=== PATIENT | female | born 1975 | race Caucasian/White ===

== ENCOUNTER 2017-04-04 23:05 | Emergency (ER) | payer BC, OTHER ==
--- NOTE | 2017-04-04 23:25 | EDM.PDOC ---
ED HPI GENERAL MEDICAL PROBLEM - General Chief Complaint: Genitourinary Problem Stated Complaint: UTI Time Seen by Provider: 04/04/17 23:17 Source of Information: Reports: Patient, Family History Limitations: Reports: No Limitations - History of Present Illness INITIAL COMMENTS - FREE TEXT/NARRATIVE: 41 y.o w. f came to the ed due to painful urination for 2 days. No other acute medical issues. Pt denies the possibility of . No other acute medical issues. BP 112/76 RR 14 Temp 36.6 pulse 76 pulse ox 98% on RA. Onset: Today Onset Date: 04/04/17 Onset Time: 07:00 Duration: Hour(s):, Intermittent Location: Reports: Pelvis Quality: Reports: Burning Severity: Mild Improves with: Reports: Medication Worsens with: Reports: Other (urinating) Context: Reports: Other (painful urination) Associated Symptoms: Reports: No Other Symptoms Bladder Pain Score (Numeric/FACES): 7 - Related Data Allergies Allergy/AdvReac Type Severity Reaction Status Date / Time Penicillins Allergy Itching Verified 04/04/17 23:16 Home Meds: Home Meds Ciprofloxacin HCl [Cipro] 500 mg PO BID #19 tablet 04/04/17 [Rx] Phenazopyridine HCl [Pyridium] 100 mg PO Q8HR #8 tablet 04/04/17 [Rx] ED ROS GENERAL - Review of Systems Review Of Systems: See Below Constitutional: Reports: No Symptoms HEENT: Reports: No Symptoms Respiratory: Reports: No Symptoms Cardiovascular: Reports: No Symptoms Endocrine: Reports: No Symptoms GI/Abdominal: Reports: No Symptoms : Reports: Dysuria Musculoskeletal: Reports: No Symptoms Skin: Reports: No Symptoms Neurological: Reports: No Symptoms Psychiatric: Reports: No Symptoms Hematologic/Lymphatic: Reports: No Symptoms Immunologic: Reports: No Symptoms ED EXAM, RENAL/ - Physical Exam Exam: See Below Exam Limited By: No Limitations General Appearance: Alert, WD/WN, No Apparent Distress Eye Exam: Bilateral Eye: Normal Inspection Ears: Normal External Exam Nose: Normal Inspection Throat/Mouth: Normal Inspection, Normal Lips Head: Atraumatic, Normocephalic Neck: Normal Inspection, Supple, Non-Tender Respiratory/Chest: No Respiratory Distress, Lungs Clear, Normal Breath Sounds Cardiovascular: Normal Peripheral Pulses, Regular Rate, Rhythm GI/Abdominal: Normal Bowel Sounds, Soft (Female) Exam: Deferred Rectal (Female) Exam: Deferred Back Exam: Normal Inspection, Full Range of Motion Extremities: Normal Inspection, Normal Range of Motion Neurological: Alert, Oriented, CN II-XII Intact, Normal Cognition, Normal Gait, Normal Reflexes Psychiatric: Normal Affect, Normal Mood Skin Exam: Warm, Dry, Intact, Normal Color, No Rash Lymphatic: No Adenopathy Course - Vital Signs Text/Narrative:: 41 y.o w. f came to the ed due to painful urination for 2 days. No other acute medical issues. Pt denies the possibility of . No other acute medical issues. BP 112/76 RR 14 Temp 36.6 pulse 76 pulse ox 98% on RA. pe: Suprapubic tenderness Labs; UA pos for JACOB with caitlin hematuria Impression: UA pos for JACOB with micr. hematuria Tx: Pyridium, Cipro Reexam: Improved Plan: D/C with instructions Last Recorded V/S: Last Vital Signs Temp 36.6 C 04/05/17 00:10 Pulse 79 04/05/17 00:10 Resp 16 04/05/17 00:10 BP 108/65 04/05/17 00:10 Pulse Ox 100 04/05/17 00:10 - Orders/Labs/Meds Labs: Laboratory Tests 04/04/17 Range/Units 23:10 Urine Color [place] (YELLOW) Urine Appearance Cloudy (CLEAR) Urine pH 8.0 H (5.0-6.5) Ur Specific [place] 1.010 (1.010-1.025) Urine Protein Negative (NEGATIVE) mg/dL Urine Glucose (UA) Normal (NEGATIVE) mg/dL Urine Ketones Negative (NEGATIVE) mg/dL Urine Occult Blood Large H (NEGATIVE) Urine Nitrite Negative (NEGATIVE) Urine Bilirubin Negative (NEGATIVE) Urine Urobilinogen Normal (NEGATIVE) mg/dL Ur Leukocyte Esterase Large H (NEGATIVE) Urine RBC >100 H (0) Urine WBC 40-50 H (0) Ur Squamous Epith Cells Few H (NS,R,O) Urine Bacteria Few H (NS) Meds: Medications Discontinued Medications Generic Name Dose Route Start Last Admin Trade Name Freq PRN Reason Stop Dose Admin Ciprofloxacin 500 mg 04/04/17 23:50 04/05/17 00:07 Ciprofloxacin Hcl PO 04/04/17 23:51 500 mg ONETIME STA Administration Phenazopyridine HCl 95 mg 04/04/17 23:50 04/05/17 00:07 Urinary Pain Relief PO 04/04/17 23:51 95 mg TIDPC STA Administration Departure - Departure Time of Disposition: 23:51 Disposition: Home, Self-Care 01 Condition: Good Clinical Impression: UTI (urinary tract infection) Qualifiers: Urinary tract infection type: acute cystitis Hematuria presence: with hematuria Qualified Code(s): N30.01 - Acute cystitis with hematuria - Discharge Information Prescriptions: Phenazopyridine HCl [Pyridium] 100 mg PO Q8HR #8 tablet Ciprofloxacin HCl [Cipro] 500 mg PO BID #19 tablet Instructions: Urinary Tract Infection, Adult, [id number] Referrals: Merlin Johnson MD [Primary Care Provider] - Forms: ED Department Discharge Additional Instructions: Please take the meds as recommended, please increase water intake please f/u, come back if your symptoms get worse acutely.
[2017-04-04] MEDS ORDERED: Ciprofloxacin 500 MG Tab PO STA (23:50)
[2017-04-04] MEDS ORDERED: Phenazopyridine 95 MG Tab PO STA (23:50)
== END 2017-04-05 00:10 | disposition home or self-care (01) ==
LOC: FB.ED 23:05
DX: N30.01 Acute cystitis with hematuria (principal); Z88.0 Allergy status to penicillin
CPT/HCPCS: 81001; 99283; A9270

== ENCOUNTER 2019-08-02 18:35 | Emergency (ER) | payer OTHER ==
[2019-08-02] MEDS ORDERED: Nitrofurantoin Monohydrate/Macrocrystalline 100 MG Cap PO ONE (18:36)
--- NOTE | 2019-08-02 19:08 | EDM.PDOC ---
ED HPI GENERAL MEDICAL PROBLEM - General Chief Complaint: Genitourinary Problem Stated Complaint: BLADDER INFECTION Time Seen by Provider: 08/02/19 19:07 Source of Information: Reports: Patient History Limitations: Reports: No Limitations - History of Present Illness INITIAL COMMENTS - FREE TEXT/NARRATIVE: Dysuria,frequency and urgency x 8hr urethral Pain Score (Numeric/FACES): 5 - Related Data Allergies Allergy/AdvReac Type Severity Reaction Status Date / Time Penicillins Allergy Itching Verified 08/02/19 18:53 Home Meds: Home Meds NK [No Known Home Meds] 08/02/19 [History] Past Medical History Genitourinary History: Reports: UTI, Recurrent [employer] History: Reports: - Infectious Disease History Infectious Disease History: Reports: Chicken Pox Social & Family History - Family History Family Medical History: Noncontributory - Tobacco Use Smoking Status *Q: Never Smoker - Caffeine Use Caffeine Use: Reports: Coffee - Alcohol Use Days Per Week of Alcohol Use: 3 Number of Drinks Per Day: 1 Total Drinks Per Week: 3 - Recreational Drug Use Recreational Drug Use: No ED ROS GENERAL - Review of Systems Review Of Systems: Comprehensive ROS is negative, except as noted in HPI. ED EXAM, RENAL/ - Physical Exam Exam: See Below Exam Limited By: No Limitations General Appearance: Alert, WD/WN, No Apparent Distress Course - Vital Signs Last Recorded V/S: Last Vital Signs Temp 97.3 F 08/02/19 19:01 Pulse 80 08/02/19 19:01 Resp 20 08/02/19 19:01 BP 92/60 08/02/19 19:01 Pulse Ox 100 08/02/19 19:01 - Orders/Labs/Meds Labs: Laboratory Tests 08/02/19 Range/Units 18:46 Urine Color [place] (YELLOW) Urine Appearance Slightly cloudy (CLEAR) Urine pH 6.0 (5.0-6.5) Ur Specific [place] 1.015 (1.010-1.025) Urine Protein 100 H (NEGATIVE) mg/dL Urine Glucose (UA) Normal (NORMAL) mg/dL Urine Ketones Negative (NEGATIVE) mg/dL Urine Occult Blood Large H (NEGATIVE) Urine Nitrite Positive H (NEGATIVE) Urine Bilirubin Moderate H (NEGATIVE) Urine Urobilinogen 4 H (NEGATIVE) mg/dL Ur Leukocyte Esterase Large H (NEGATIVE) Urine RBC 50-75 H (0-5) Urine WBC >100 H (0-5) Ur Squamous Epith Cells Occasional (NS,R,O) Urine Bacteria Few H (NS) Departure - Departure Time of Disposition: 19:08 Disposition: Home, Self-Care 01 Condition: Good Clinical Impression: UTI, Urinary tract infectious disease - Discharge Information Instructions: Urinary Tract Infection, Adult Referrals: Penny Esparza [facility] [Primary Care Provider] - Forms: ED Department Discharge Additional Instructions: Macrobid (nitrofurantoin) take 1 capsule two times a day til gone. Follow up with regular Doctor Sepsis Event Note - Evaluation Sepsis Screening Result: No Definite Risk - Focused Exam Vital Signs: Vital Signs Temp Pulse Resp BP Pulse Ox 08/02/19 19:01 97.3 F 80 20 92/60 100 Date Exam was Performed: 08/02/19 Time Exam was Performed: 19:07 - Problem List & Annotations (1) UTI (urinary tract infection) SNOMED Code(s): 43758406 Code(s): N39.0 - URINARY TRACT INFECTION, SITE NOT SPECIFIED Status: Acute Current Visit: No Qualifiers: Urinary tract infection type: acute cystitis Hematuria presence: with hematuria Qualified Code(s): N30.01 - Acute cystitis with hematuria - Problem List Review Problem List Initiated/Reviewed/Updated: Yes - Assessment/Plan Plan: Macrobid.
== END 2019-08-02 19:05 | disposition home or self-care (01) ==
LOC: FB.ED 18:35
DX: N39.0 Urinary tract infection, site not specified (principal); Z88.0 Allergy status to penicillin
CPT/HCPCS: 81001; 87086; 87088; 87186; 99283; A9270